=== PATIENT | female | born 1990 ===

== ENCOUNTER 2024-04-14 10:53 | Outpatient (CLI) | payer OTHER ==
[~2024-04-14 10:53] MED LIST: PRENATAL CAPLE1 EACH PO
== END 2024-04-14 11:44 | disposition home or self-care (01) ==
LOC: NST 10:53
PROVIDERS: ATTEND Obstetrics & Gynecology Gynecology
DX: Z34.82 Encounter for supervision of other normal pregnancy, second trimester (principal)

== ENCOUNTER 2024-04-21 19:59 | Outpatient (CLI) | payer OTHER | END 2024-04-21 20:16 | disposition home or self-care (01) | LOC: NST 19:59 | PROVIDERS: ATTEND Obstetrics & Gynecology | DX: Z34.82 Encounter for supervision of other normal pregnancy, second trimester (principal) ==

== ENCOUNTER 2024-06-30 17:40 | Outpatient (CLI) | payer OTHER | END 2024-06-30 19:01 | disposition home or self-care (01) | LOC: NST 17:40 | PROVIDERS: ATTEND Obstetrics & Gynecology Gynecology | DX: Z34.83 Encounter for supervision of other normal pregnancy, third trimester (principal) ==

== ENCOUNTER 2024-07-13 08:56 | Outpatient (CLI) | payer OTHER ==
[2024-07-14] MEDS ORDERED: VALTREX1000 MG PO (18:19)
[2024-07-14] MEDS ORDERED: IRON240 MG PO (18:19)
== END 2024-07-13 09:40 | disposition home or self-care (01) ==
LOC: NST 08:56
PROVIDERS: ATTEND Obstetrics & Gynecology
DX: Z34.83 Encounter for supervision of other normal pregnancy, third trimester (principal)

== ENCOUNTER 2024-07-14 18:03 | Outpatient (CLI) | payer OTHER ==
[2024-07-14 17:16] VITALS: BP 115/80
[2024-07-14] MEDS ORDERED: VALTREX1000 MG PO (18:19)
[2024-07-14] MEDS ORDERED: IRON240 MG PO (18:19)
[2024-07-14 23:20] VITALS: BP 108/73
[2024-07-15 04:00] VITALS: BP 100/69
[2024-07-15 08:09] VITALS: BP 109/69
[2024-07-15 10:21] VITALS: BP 109/69
== END 2024-07-15 10:43 | disposition home or self-care (01) ==
LOC: OBS/DEL 18:03
PROVIDERS: ATTEND Obstetrics & Gynecology
DX: O26.893 Other specified pregnancy related conditions, third trimester (principal); Z3A.39 39 weeks gestation of pregnancy

== ENCOUNTER 2024-07-16 05:16 | Inpatient (IN) | payer OTHER ==
[~2024-07-16] VITALS: Ht 160 cm; Wt 73.9 kg
[~2024-07-16 05:16] MED LIST changes: +IRON240 MG PO; +VALTREX1000 MG PO
[2024-07-16 06:34] VITALS: BP 114/79
[2024-07-16] MEDS ORDERED: RINGERS SOLUTION,LACTATED 1,000 ML IV SCH (08:15)
[2024-07-16] MEDS ORDERED: OXYTOCIN 500 ML IV ONE (08:15)
[2024-07-16 08:19] LABS: HEMATOCRIT 36.3 % (36.0-45.00); HEMOGLOBIN 12.2 g/dL (12.0-15.00); MEAN CELL VOLUME 84.6 fL (80.00-100.00); MEAN CORPUSCULAR HEMOGLOBIN 28.4 pg (27.00-32.0); MEAN CORPUSCULAR HGB CONC 33.5 g/dl (32.0-36.0); PLATELET COUNT 148 K/uL (150-450); RED BLOOD COUNT 4.29 M/uL (4.00-6.00)
[2024-07-16 08:41] LABS: INR 0.96; PROTHROMBIN TIME 10.5 SECONDS (9.0-11.5)
[2024-07-16 08:59] LABS: BILIRUBIN TOTAL 0.45 mg/dL (0.3-1.2); CALCIUM 8.5 mg/dL (8.5-10.1); CREATININE SERUM 0.48 mg/dL (0.55-1.02); GFR 149.88; GLOBULINA 3.4 G/DL (2.4-3.5); POTASSIUM 4.25 mEq/L (3.5-5.1); TOTAL PROTEIN 6.4 gm/dL (6.4-8.2)
[2024-07-16] MEDS ORDERED: MORPHINE SULFATE 4 MG/ML CARTRIDGE IV PRN (12:00)
[2024-07-16] MEDS ORDERED: IBUprofen 400 MG TABLET PO PRN (15:15)
[2024-07-16] MEDS ORDERED: CHLORHEXIDINE GLUCONATE 120 ML BOTTLE TOP SCH (15:15)
[2024-07-16] MEDS ORDERED: OXYTOCIN 1,000 ML IV SCH (15:15)
[2024-07-16] MEDS ORDERED: LIDOCAINE HCL 1% 10ML VIAL PERCUT ONE (15:30)
[2024-07-16] MEDS ORDERED: ERYTHROMYCIN BASE OPHT 1GM EACH TUBE OP ONE (15:30)
[2024-07-16 15:58] VITALS: BP 114/78
[2024-07-16 18:38] VITALS: BP 118/72
[2024-07-16] MEDS ORDERED: FAMOTIDINE/PF 20 MG/2 ML VIAL IV PRN (20:15)
[2024-07-17 00:20] VITALS: BP 127/83
[2024-07-17 07:22] VITALS: BP 102/66
[2024-07-17 07:34] LABS: HEMATOCRIT 31.7 % (36.0-45.00); HEMOGLOBIN 10.9 g/dL (12.0-15.00); MEAN CELL VOLUME 84.7 fL (80.00-100.00); MEAN CORPUSCULAR HGB CONC 34.2 g/dl (32.0-36.0); PLATELET COUNT 150 K/uL (150-450); RED BLOOD COUNT 3.74 M/uL (4.00-6.00); RED CELL DISTRIBUTION WIDTH 19.9 % (11.5-14.5)
[2024-07-17 16:00] VITALS: BP 114/71
[2024-07-18 02:54] VITALS: BP 108/73
[2024-07-18 08:00] VITALS: BP 119/80
== END 2024-07-18 13:11 | disposition home or self-care (01) | DRG 807 ==
LOC: LDR 05:16 → OB/GYN 17:55 → LDR 07-30 15:24
PROVIDERS: Obstetrics & Gynecology; ADMIT Obstetrics & Gynecology Gynecology; ATTEND Obstetrics & Gynecology Gynecology
PROC: 10E0XZZ Delivery of Products of Conception, External Approach (ICD-10-PCS; principal; 2024-07-16)
PROC: 0UQMXZZ Repair Vulva, External Approach (ICD-10-PCS; 2024-07-16)
PROC: 4A1HXCZ Monitoring of Products of Conception, Cardiac Rate, External Approach (ICD-10-PCS; 2024-07-16)
DX: O70.0 First degree perineal laceration during delivery (principal); Z37.0 Single live birth; Z3A.39 39 weeks gestation of pregnancy